=== PATIENT | male | born 1990 | race Hispanic/Latino ===

== ENCOUNTER 2023-02-08 04:10 | Emergency (ER) | payer SELFPAY ==
[2023-02-08] MEDS ORDERED: Proparacaine 0.5% Opth 15 ML BOT ONE (04:22)
[2023-02-08] MEDS ORDERED: Fluorescein Opthalmic Strip ONE (05:08)
== END 2023-02-08 05:50 | disposition home or self-care (01) ==
LOC: ERS 04:10
DX: H10.9 Unspecified conjunctivitis (principal)
CPT/HCPCS: 99282